=== PATIENT | male | born 1960 | race Caucasian/White ===

== ENCOUNTER → 2018-04-22 | Outpatient (CLI) | payer OTHER ==
--- NOTE | 2018-04-22 12:04 | MRI ---
Study: MRI of the Right Shoulder. Indication: UNSP INJURY OF RIGHT SHOULDER AND UPPER ARM, INIT Technique: Multiplanar, multi sequence MRI of the right shoulder was obtained without intravenous contrast. Comparison: None. Findings: Moderate hypertrophic AC joint osteoarthritis. Type I acromion. Small to moderate volume subacromial/subdeltoid bursal fluid. Full-thickness, fullwidth supraspinatus and infraspinatus tendon tearing with retraction of torn articular tendon fibers to the level of the glenoid and torn bursal surface fibers to the level of the AC joint line. Subscapularis tendinosis with full-thickness tearing superior two thirds tendon insertion. Teres minor tendon intact. Mild atrophy and grade 2 fatty infiltration rotator cuff musculature. Supraspinatus and infraspinatus intramuscular edema noted as well. Mild ganglionic like fluid distention noted along the posterior superior margin of the infraspinatus muscle belly. Long head biceps tendinosis with medial subluxation onto the lesser tuberosity. No transection. Circumferential labral degeneration. Mild glenohumeral joint osteoarthritis with a small joint effusion. No acute fracture. Impression: Retracted full-thickness, fullwidth supraspinatus and infraspinatus tendon tearing as detailed above. Subscapularis tendinosis with full-thickness tearing superior two thirds of the tendon insertion. Mild atrophy and grade 2 fatty infiltration rotator cuff musculature with intramuscular edema supraspinatus and infraspinatus muscle bellies. Long head biceps tendinosis and medial subluxation. Circumferential labral degeneration. Mild glenohumeral joint osteoarthritis with small joint effusion. Moderate hypertrophic AC joint osteoarthritis. Electronically signed by: Jatin Almonte MD 04/22/2018 12:02 PM [facility]
== END ==
LOC: MRI 04-18 11:56
PROVIDERS: ATTEND Nurse Practitioner Family
DX: M75.101 Unspecified rotator cuff tear or rupture of right shoulder, not specified as traumatic (principal); M75.91 Shoulder lesion, unspecified, right shoulder; M19.011 Primary osteoarthritis, right shoulder

== ENCOUNTER → 2018-05-19 | Outpatient (CLI) | payer OTHER ==
--- NOTE | 2018-05-19 10:31 | RAD ---
EXAM DESCRIPTION: Shoulder,Right 2 or More Views CLINICAL HISTORY: PAIN IN RIGHT SHOULDER COMPARISON: None. IMPRESSION: 4 views of the right shoulder show no evidence of acute fracture, focal bone destruction, or joint dislocation. Mild osteoarthritic changes of the right acromioclavicular joint are seen. Electronically signed by: Serge Crockett MD 05/19/2018 10:29 AM [facility]
== END ==
LOC: RAD 08:53
PROVIDERS: ATTEND Orthopaedic Surgery
DX: M25.511 Pain in right shoulder (principal); M19.011 Primary osteoarthritis, right shoulder

== ENCOUNTER → 2019-08-20 | Outpatient (CLI) | payer BC, OTHER ==
--- NOTE | 2019-08-20 11:44 | CT ---
EXAM DESCRIPTION: CT head without contrast CLINICAL HISTORY: OTHER VISUAL DISTURBANCES COMPARISON: None available TECHNIQUE: Noncontrast head CT was performed with routine protocol. FINDINGS: Normal velázquez-white matter differentiation. Ventricles and sulci are normal for age. No high density hemorrhage, focal edema or shift of the midline. No sulcal effacement. Normal orbital contents. Basilar cisterns appear clear. Intact calvarium with no fracture or lytic lesion. Normal aeration of tympanic cavities and mastoid air cells. No fluid levels in the paranasal sinuses. Skull base appears intact. Symmetrical internal auditory canals. IMPRESSION: No acute intracranial pathologic process. This exam was performed according to our departmental dose-optimization program, which includes automated exposure control, adjustment of the mA and/or kV according to patient size and/or use of iterative reconstruction technique. Total DLP equals 752.48 mGycm. Electronically signed by: Zaid Marsh MD 08/20/2019 11:42 AM CDT
== END ==
LOC: LAB.O 09:39
PROVIDERS: ATTEND Registered Nurse General Practice
DX: H53.8 Other visual disturbances (principal); E11.39 Type 2 diabetes mellitus with other diabetic ophthalmic complication

== ENCOUNTER → 2019-12-07 | Outpatient (CLI) | payer BC ==
--- NOTE | 2019-12-07 14:49 | RAD ---
EXAM DESCRIPTION: Chest,2 Views CLINICAL HISTORY: 59 years Male, ENCOUNTER FOR OTHER PREPROCEDURAL EXAMINATION COMPARISON: None. FINDINGS: 2 views/radiographs Heart size and pulmonary vessels are within normal limits. There is no pneumothorax or pleural effusion. The lungs are clear bilaterally. The soft tissues are unremarkable. No acute osseous findings. IMPRESSION: No acute cardiopulmonary abnormality. Electronically signed by: Mark Lofton MD 12/07/2019 2:48 PM CDT
== END ==
LOC: LAB.O 11:46
PROVIDERS: ATTEND Registered Nurse General Practice
DX: Z01.818 Encounter for other preprocedural examination (principal)

== ENCOUNTER → 2020-03-24 | Outpatient (CLI) | payer BC ==
--- NOTE | 2020-03-25 08:02 | RAD ---
EXAM DESCRIPTION: Tibia/Fibula 2 x-ray views,Left CLINICAL HISTORY: 59 years Male, PAIN COMPARISON: None. FINDINGS: Frontal and lateral x-ray views of left tibia and fibula. Degenerative narrowing at the knee joint with spurring. Tibia and fibula appear intact with no acute fracture. Periosteal new bone formation along the distal diaphysis of the fibula and diametaphysis of the tibia consistent with old periosteal injury. Vascular calcification is present. IMPRESSION: Negative for acute fracture or dislocation. Electronically signed by: Zaid Marsh MD 03/25/2020 8:00 AM CDT
== END ==
LOC: RAD 09:42
PROVIDERS: ATTEND Orthopaedic Surgery
DX: M79.605 Pain in left leg (principal)